=== PATIENT | male | born 1990 | race Hispanic/Latino ===

== ENCOUNTER 2018-07-11 12:21 | Emergency (ER) | payer SELFPAY ==
[2018-07-11 12:36] VITALS: TEMP 98.2
--- NOTE | 2018-07-11 12:49 | ED.PDOC ---
History of Present Illness - General Chief Complaint: Upper Extremity Injury Stated Complaint: R shoulder injury Time Seen by Provider: 07/11/18 12:39 Source: patient Exam Limitations: no limitations - History of Present Illness Initial Comments: PT REPORTS RIGHT SHOULDER PAIN FOR THE PAST 4 DAYS AFTER PLAYING BASEBALL. PT STATES THAT HE CAN RECALL THAT SHOULDER BEGAN TO HURT WHILE PITCHING. PT HAS BEEN ICING SHOULDER AND USING IBUPROFEN AT HOME. Pain - Upper Extremity: moderate: Shoulder, right Method of Injury: sports injury Improving Factors: immobilization Worsening Factors: movement - ABDUCTION Home Medications: Ambulatory Orders Ibuprofen 800 mg PO Q8HR PRN #30 tab 07/11/18 Mirtazapine 45 mg PO BEDTIME 07/11/18 Tramadol HCl 50 - 100 mg PO Q6HRS PRN #24 tab 07/11/18 Review of Systems - Review of Systems Constitutional: Denies: chills, fever Respiratory: Denies: cough, short of breath Cardiology: Denies: chest pain, palpitations Musculoskeletal: States: see HPI, joint pain. Denies: back pain, joint swelling Past Medical History (General) - Patient Medical History Hx Stroke: No Hx Congestive Heart Failure: No Hx Diabetes: No - Vaccination History Hx Influenza Vaccination: No Hx Pneumococcal Vaccination: No - Social History Hx Tobacco Use: Yes - Quit use of cigs 06/2018; Uses vape Hx Alcohol Use: Yes - Social use Family Medical History - Family History Father Family History: No Known Living Status: Still Living Physical Exam - Physical Exam General Appearance: Alert, No apparent distress, Well Developed, Well Groomed, Well Hydrated Eyes, Ears, Nose, Throat Exam: normal ENT inspection Neck: normal inspection Cardiovascular/Respiratory: no respiratory distress Back Exam: normal inspection Shoulder Exam: normal inspection, no evidence of injury, pain - WITH ABDUCTION OF SHOULDER, soft tissue tenderness - TO THE ANTERIOR ASPECT OF THE SHOULDER Elbow/Forearm Exam: non-tender, no evidence of injury Wrist Exam: non-tender, no evidence of injury Hand Exam: non-tender, no evidence of injury Mental Status: alert, oriented x 3 Skin Exam: normal color, warm/dry Departure - Departure Clinical Impression: Sprain of shoulder Time of Disposition: 12:51 Disposition: Discharge to Home or Self Care Condition: Good Departure Forms: ED Discharge - Pt. Copy, Patient Portal Self Enrollment Instructions: Shoulder Sprain (DC) Referrals: Darrin Dolan MD [Active Staff] - 1-2 Weeks Prescriptions: Tramadol HCl 50 - 100 mg PO Q6HRS PRN #24 tab PRN Reason: Pain Ibuprofen 800 mg PO Q8HR PRN #30 tab PRN Reason: Pain Home Medications: Ambulatory Orders Ibuprofen 800 mg PO Q8HR PRN #30 tab 07/11/18 Mirtazapine 45 mg PO BEDTIME 07/11/18 Tramadol HCl 50 - 100 mg PO Q6HRS PRN #24 tab 07/11/18
[2018-07-11 13:06] VITALS: BP 140/72; O2SAT 96
== END 2018-07-11 13:25 | disposition home or self-care (01) ==
LOC: ER 12:21
DX: S43.401A Unspecified sprain of right shoulder joint, initial encounter (principal); F17.290 Nicotine dependence, other tobacco product, uncomplicated; X58.XXXA Exposure to other specified factors, initial encounter; Y93.64 Activity, baseball; Y92.9 Unspecified place or not applicable

== ENCOUNTER 2018-12-13 18:00 | Emergency (ER) | payer SELFPAY ==
[2018-12-13 18:18] VITALS: O2SAT 99
--- NOTE | 2018-12-13 18:30 | RAD ---
EXAM DESCRIPTION: Ankle,Right 2 Views (accession [id number]), Foot,Right 2 Views (accession [id number]) CLINICAL HISTORY: 28 years Male, soccer injury COMPARISON: None. FINDINGS: Right foot 2 views and right ankle 2 views No fracture or dislocation. 2.5 mm radiopaque structure projecting over the plantar subcutaneous soft tissues which may be artifactual, external or may represent foreign body. Otherwise soft tissues are within normal limits. Electronically signed by: Flako Townsend MD 12/13/2018 6:[address] [facility]
--- NOTE | 2018-12-13 18:30 | RAD ---
EXAM DESCRIPTION: Ankle,Right 2 Views (accession [id number]), Foot,Right 2 Views (accession [id number]) CLINICAL HISTORY: 28 years Male, soccer injury COMPARISON: None. FINDINGS: Right foot 2 views and right ankle 2 views No fracture or dislocation. 2.5 mm radiopaque structure projecting over the plantar subcutaneous soft tissues which may be artifactual, external or may represent foreign body. Otherwise soft tissues are within normal limits. Electronically signed by: Flako Townsend MD 12/13/2018 6:28 PM [facility]
--- NOTE | 2018-12-13 18:48 | ED.PDOC ---
History of Present Illness - General Chief Complaint: Lower Extremity Injury Stated Complaint: right foot injury Time Seen by Provider: 12/13/18 18:13 Source: patient Exam Limitations: no limitations - History of Present Illness Initial Comments: the patient's a 28-year-old male presenting to emergency room with this friend after having injured his right ankle while playing soccer. He is having pain diffusely around the ankle and towards the upper lateral midfoot. There is no deformity. He is neurovascularly intact. Passive and active range of motion well-preserved. He felt a pop when it happened. No pain in the proximal fibula or tibia. Timing/Duration: momentarily Severity: moderate Improving Factors: nothing Worsening Factors: movement Associated Symptoms: denies symptoms Allergies/Adverse Reactions: Allergies NO KNOWN ALLERGY Allergy (Verified 12/13/18 18:34) Home Medications: Ambulatory Orders Mirtazapine 45 mg PO BEDTIME 07/11/18 Review of Systems - Review of Systems Constitutional: States: no symptoms reported EENTM: States: no symptoms reported Respiratory: States: no symptoms reported Cardiology: States: no symptoms reported Gastrointestinal/Abdominal: States: no symptoms reported Genitourinary: States: no symptoms reported Musculoskeletal: States: see HPI Skin: States: no symptoms reported Neurological: States: no symptoms reported Endocrine: States: no symptoms reported All other Systems: No Change from Baseline Past Medical History (General) - Patient Medical History Hx Stroke: No Hx Congestive Heart Failure: No Hx Diabetes: No Surgical History: no surgical history - Vaccination History Hx Tetanus, Diphtheria Vaccination: Yes Hx Influenza Vaccination: No Hx Pneumococcal Vaccination: No Immunizations Up to Date: Yes - Social History Hx Tobacco Use: No Hx Alcohol Use: Yes Hx Substance Use: No Hx Depression: No Family Medical History - Family History Father Family History: No Known Living Status: Still Living Physical Exam - Physical Exam General Appearance: Alert, Comfortable, No apparent distress Eye Exam: bilateral normal Ears, Nose, Throat: hearing grossly normal Neck: full range of motion Respiratory: no respiratory distress, no accessory muscle use Cardiovascular/Chest: normal peripheral pulses, no edema Peripheral Pulses: dorsalis pedis,right: 2+, posterior tibialis,right: 2+ Gastrointestinal/Abdominal: non tender Rectal Exam: deferred Extremity: normal range of motion, no pedal edema, no calf tenderness, normal capillary refill Neurologic: outside repairer special II-XII nml as tested, no motor/sensory deficits, alert, normal mood/affect, oriented x 3 Skin Exam: normal color Comments: Vital Signs - 24 hr 12/13/18 18:13 Temperature 99.3 F Pulse Rate [ 94 H Right Radial] Respiratory 16 Rate Blood Pressure 146/90 [Right Arm] O2 Sat by Pulse 99 Oximetry Progress - Progress Progress: 12/13/18 18:48 the patient is a 28-year-old male presenting to the emergency room with a right ankle and midfoot sprain due to a soccer injury. X-ray of the ankle and midfoot show no evidence of any fracture. The patient is having significant pain so he is being placed in a walking boot. I would recommend that he wear this routinely for at least the next 2-3 weeks. It will probably be 2-3 months before he is able to resume routine athletic activity. If pain is failing to improve significantly after 1-2 weeks then repeat x-rays may be warranted. Motrin or Aleve can be used for discomfort. ER warnings were given for any worsening. Departure - Departure Clinical Impression: Moderate right ankle sprain Qualifiers: Encounter type: initial encounter Qualified Code(s): S93.401A - Sprain of unspecified ligament of right ankle, initial encounter Disposition: Discharge to Home or Self Care Condition: Fair Departure Forms: ED Discharge - Pt. Copy, Patient Portal Self Enrollment Instructions: Ankle Sprain (DC) Diet: regular diet Activity: no exercise Home Medications: Ambulatory Orders Mirtazapine 45 mg PO BEDTIME 07/11/18 Additional Instructions: the patient is a 28-year-old male presenting to the emergency room with a right ankle and midfoot sprain due to a soccer injury. X-ray of the ankle and midfoot show no evidence of any fracture. The patient is having significant pain so he is being placed in a walking boot. I would recommend that he wear this routinely for at least the next 2-3 weeks. It will probably be 2-3 months before he is able to resume routine athletic activity. If pain is failing to improve significantly after 1-2 weeks then repeat x-rays may be warranted. Motrin or Aleve can be used for discomfort. ER warnings were given for any worsening.
[2018-12-13] MEDS: HYDROcodone 7.5MG/APAP 325MG 1 EA TAB PO ONE (18:55)
[2018-12-13 18:58] VITALS: BP 131/68; TEMP 99.1
== END 2018-12-13 19:01 | disposition home or self-care (01) ==
LOC: ER 18:00
DX: S93.401A Sprain of unspecified ligament of right ankle, initial encounter (principal); X58.XXXA Exposure to other specified factors, initial encounter; Y93.66 Activity, soccer; Y92.9 Unspecified place or not applicable